=== PATIENT | female | born 1995 | race Two or more races ===

== ENCOUNTER 2019-06-04 10:02 | Inpatient (IN) | payer OTHER ==
[~2019-06-04] VITALS: Ht 160 cm; Wt 84.1 kg
[2019-06-04] MEDS ORDERED: LR 1,000 ML IV SCH (10:15)
[2019-06-04] MEDS ORDERED: LACTATED RINGER'S 1000 ML IV STA (10:15)
[2019-06-04 10:44] VITALS: BP 122/74
[2019-06-04 11:02] VITALS: BP 132/61
[2019-06-04 11:17] VITALS: BP 118/68
[2019-06-04 11:21] LABS: HEMATOCRIT 39.7 % (36.0-47.0); HEMOGLOBIN 12.9 g/dl (12.0-15.5); MEAN CORPUSCULAR HEMOGLOBIN 27.9 pg (27.0-33.0); MEAN CORPUSCULAR HGB CONC 32.5 g/dl (32.0-36.5); MEAN CORPUSCULAR VOLUME 85.9 fl (80.0-96.0); PLATELET COUNT, AUTOMATED 174 10^3/uL (150-450); RED BLOOD COUNT 4.62 10^6/uL (4.00-5.40)
[2019-06-04] MEDS ORDERED: ACETAMINOPHEN 500 MG TAB PO PRN (11:30)
[2019-06-04] MEDS ORDERED: DOCUSATE SODIUM 100 MG CAP PO PRN (11:30)
[2019-06-04] MEDS ORDERED: IBUPROFEN 800 MG TAB PO PRN (11:30)
[2019-06-04] MEDS ORDERED: IBUPROFEN 600 MG TAB PO PRN (11:30)
[2019-06-04] MEDS ORDERED: MEASLES,MUMPS,RUBELLA VACCINE INJ (MMR-II) (90707) SC SCH (11:30)
[2019-06-04] MEDS ORDERED: DIBUCAINE 1% OINTMENT 30GM TOP PRN (11:30)
[2019-06-04] MEDS ORDERED: RHOGAM 300 MCG (1500 IU) INJ (J2790) IM SCH (11:30)
[2019-06-04] MEDS ORDERED: ACETAMINOPHEN TAB 650MG DOSE (2X325MG) PO PRN (11:30)
[2019-06-04 11:33] VITALS: BP 140/86
[2019-06-04] MEDS ORDERED: OXYTOCIN INJ 10 UNITS/ML VIAL (J2590) IM ONE (11:45)
[2019-06-04] MEDS ORDERED: LIDOCAINE 1% MDV 20ML VIAL INFIL ONE (11:45)
--- NOTE | 2019-06-04 11:45 | HPEPDOC ---
Obstetrical History & Physical General Date of Admission Jun 04, 2019 at 10:11 History of Present Illness Sandra is a 24yo with SIUP at 37w4d by early u/s presenting with regular, painful ctx since 0400 this morning. In triage, her water broke with clear/bloody fluid and SCE 8/90/-1. Good movement. No f/c/n/v. Chief Complaint: Contractions, term Information Provided By: Patient Care Care: Good Care Dating Final EDC: Jun 21, 2019 Final EDC by: 1st trimester (US) Antepartum Course Diagnos(e)s overweight (BMI 28) Height (inches): 63 Pre- weight (lbs.): 162 Admission Weight (lbs.): 182 Change in Weight (lbs.): 20 Past Medical History Past Obstetrical History : Past Obstetrical History: Multigravida (2016 38wk 7lb3oz F uncomplicated) Complications: No [employer]ING [employer] History: No pertinent history Past Medical History Medical History BMI 28 Surgical History: Denies/None Family History Significant Family History: No pertinent family hx Social History Marital Status: Family situation: Spouse/partner home Psychosocial History: No pertinent psych hx * Smoker: non-smoker Alcohol: Denies Drugs: denies Imunizations Tdap status: current Influenza Status: current Allergies Coded Allergies: No Known Allergies (Unverified , 06/04/19) Physical Examination Physical Examination GENERAL: Alert and oriented times three. ABDOMEN: Gravid and non-tender to touch. FETUS: Is vertex (VTX) by sterile vaginal examination (SVE) EXTREMITIES: No edema Vital Signs/I&O Vital Signs Date Time Temp Pulse Resp B/P (MAP) Pulse Ox O2 Delivery O2 Flow Rate FiO2 06/04/19 11:02 94 132/61 (84) Laboratory Data 24H LABS Laboratory Tests 2 06/04/19 10:19: Serology Scanned Report Hepatitis B Testing 06/04/19 11:11: Nucleated Red Blood Cells % (auto) 0.0 CBC/BMP Laboratory Tests 06/04/19 11:11 Pertinent Laboratoy Data Blood Type: A+ RBC Antibody Screen: Negative HIV: Negative Hepatitis B: Negative Hepatitis C: Unknown Rapid Plasma Reagin: Nonreactive Rubella: Immune Varicella: Immune Chlamydia/Gonorrhea: Negative Group B Streptococcus: Negative Glucose Tolerance Test: 100 Anatomy Ultrasound Ultrasound Date: Feb 08, 2019 Placenta Location: Posterior Normal Anatomy: Yes Placenta Previa: No Steroid Therapy Steroid Therapy: No Vaginal Examination Dilation: 8 cm Effacement: 90% Station: -1, 0 Cervical Consistency: Soft Cervical Position: Anterior Presentation: Cephalic presentation Assessment Variability: Moderate Accelerations: Positive Decelerations: None Tocometer Contractions: Yes Frequency: regular, every 2-5 min. Duration: greater than 60 seconds Strength: palpated as strong Assessment/Plan Assessment Sandra is a 24yo with SIUP at 37w4d by early u/s in active labor with SCE /-1, ctx q2-3min. Reassuring FHRT. Vitals wnl, benign exam. Cephalic by SCE. GBS negative. PMhx/ course only significant for starting BMI 28. Plan Admit and orient. Director Clinical Operations and consent. Diet: clear liquids Group B Streptococcus (GBS) negative Labs per unit protocol (patient delivered before IV could be placed) Anticipate normal spontaneous delivery () MD Nikhil Serna Katrina D MD Jun 04, 2019 11:45
--- NOTE | 2019-06-04 12:08 | DNPDOC ---
[facility] Delivery Note Delivery Note DATE OF DELIVERY: 04 Jun 2019 PREDELIVERY DIAGNOSIS: 37w4d gestation and labor. POST DELIVERY DIAGNOSIS: Delivered. PROCEDURE: Spontaneous vaginal delivery APPLIANCE SERVICER: Dr. Julia Tejeda MD ANESTHESIA: 1% lidocaine for repair ESTIMATED BLOOD LOSS: 250 mL. FINDINGS: 6 pound 5 ounce (2850g) female , Score 9/9 DELIVERY SUMMARY: Sandra is a 24yo [id number] s/p uncomplicated at 1021 on 06/04/2019 after presenting in active labor at 37w4d. She was 8cm on presentation and had SROM in triage (clear/bloody). Within a few contractions, she was complete and pushing. Infant's head delivered OA, restituted TRANG. Right anterior shoulder delivered followed by posterior shoulder and corpus. Terminal meconium noted. Infant was vigorous with spontaneous cry, placed on maternal abdomen and cord was clamped x2 and cut by FOB after approximately 2 minutes. 's nose and mouth were suctioned with bulb suction. Apgars 9/9. With traction on the umbilical cord and uterine massage, placenta delivered spontaneously and intact with 3 vessel centrally inserted cord. More uterine massage was performed and fundus was then firm at u-2cm. 10u IM pitocin given (patient did not have IV since delivered so quickly after presenting). Inspection of perineum and vagina revealed small left labial laceration repaired in routine fashion (after injecting 1% lidocaine) with 3-0 vicryl with excellent reapproximation and total hemostasis noted. All counts correct x2. Mom and infant were doing well when I left the room. MD Nikhil Serna Katrina D MD Jun 04, 2019 12:08
[2019-06-04 14:30] VITALS: BP 117/61
[2019-06-04 18:00] VITALS: BP 118/61
[2019-06-05 06:11] VITALS: BP 126/64
[2019-06-05] MEDS: PRENATAL VITAMINS CHEWABLE TABLET PO SCH (09:00)
--- NOTE | 2019-06-05 10:44 | IPNPDOC ---
Progress Note Date of Service: Jun 05, 2019 Day#: 1 Progress Note PPD 1 SUBJECT: Sandra is a 24yo [id number] doing well on PPD 1 s/p uncomplicated on 06/04 at 1021 after presenting in active labor at 37w4d. She has been ambulating, voiding spontaneously without issue and tolerating regular diet. Breast feeding without issue. Reports lochia is like a heavy period. No f/c/n/v/CP/SOB. OBJECTIVE: VITAL SIGNS: Within normal limits, afebrile. Alert and oriented times three. Abdomen: Fundus firm at U-2. Soft, NTTP. Extremities: trace edema of BLE, no ASSESSMENT: Sandra is a 24yo [id number] doing well on PPD 1 s/p uncomplicated on 06/04 at 1021 after presenting in active labor at 37w4d. Vitals within normal limits, afebrile, hemodynamically stable with no evidence of infection. PLAN: 1. Routine care 2. Tylenol and Motrin for pain. 3. Encourage breast feeding and ambulation. 4. Undecided on contraception 5. Likely discharge home tomorrow if meeting all milestones Dr. Julia Tejeda MD VS, I&O, 24H, Fishbone Vital Signs/I&O Vital Signs Date Time Temp Pulse Resp B/P (MAP) Pulse Ox O2 Delivery O2 Flow Rate FiO2 06/05/19 06:11 98.9 80 18 126/64 (84) 99 Room Air I&O- Last 24 Hours up to 6 AM 06/05/19 06:00 Output Total 450 ml Balance -450 ml Laboratory Data 24H LABS Laboratory Tests 2 06/04/19 11:11: Nucleated Red Blood Cells % (auto) 0.0 CBC/BMP Laboratory Tests 06/04/19 11:11 Julia Tejeda MD Jun 05, 2019 10:44
[2019-06-05 18:00] VITALS: BP 121/66
[2019-06-06 06:05] VITALS: BP 102/58
--- NOTE | 2019-06-06 07:54 | IPNPDOC ---
Progress Note Date of Service: Jun 06, 2019 Day#: 2 Progress Note PPD 2 SUBJECT: Sandra is a 24yo [id number] doing well on PPD 2 s/p uncomplicated on 06/04 at 1021 after presenting in active labor at 37w4d. She has been ambulating, voiding spontaneously without issue and tolerating regular diet. Breast feeding without issue. Reports lochia is tapering. No f/c/n/v/CP/SOB. OBJECTIVE: VITAL SIGNS: Within normal limits, afebrile. Alert and oriented times three. Abdomen: Fundus firm at U-2. Soft, NTTP. Extremities: trace edema of BLE, no ASSESSMENT: Sandra is a 24yo [id number] doing well on PPD 2 s/p uncomplicated on 06/04 at 1021 after presenting in active labor at 37w4d. Vitals within normal limits, afebrile, hemodynamically stable with no evidence of infection. PLAN: 1. Discharge to home 2. Tylenol and Motrin for pain. 3. Encourage breast feeding and ambulation. 4. Undecided on contraception, will discuss at routine PP visit in 6 weeks (pt knows to call for appt) 5. Discussed return precautions Dr. Julia Tejeda MD VS, I&O, 24H, Fishbone Vital Signs/I&O Vital Signs Date Time Temp Pulse Resp B/P (MAP) Pulse Ox O2 Delivery O2 Flow Rate FiO2 06/06/19 06:05 98.3 67 18 102/58 (73) 97 Room Air Julia Tejeda MD Jun 06, 2019 07:54
[2019-06-06] MEDS ORDERED: IBUP80TA PO (07:55)
[2019-06-06] MEDS ORDERED: ACET-683 PO (07:55)
--- NOTE | 2019-06-06 07:58 | DS.PDOC ---
Discharge Summary General Date of Admission Jun 04, 2019 at 10:11 Date of Discharge Jun 06, 2019 Attending Physician: Julia Tejeda MD Discharge Summary PROCEDURES PERFORMED DURING STAY: spontaneous vaginal delivery ADMITTING DIAGNOSES: 1. Active labor at term DISCHARGE DIAGNOSES: 1. Active labor at term, delivered COMPLICATIONS/CHIEF COMPLAINT: Labor Check. HISTORY OF PRESENT ILLNESS/HOSPITAL COURSE: Sandra is a 24yo [id number] doing well on PPD 2 s/p uncomplicated on 06/04 at 1021 after presenting in active labor at 37w4d. She had a benign course. At time of discharge, vitals are within normal limits, afebrile, hemodynamically stable with no evidence of infection. DISCHARGE MEDICATIONS: Please see below. ALLERGIES: Please see below. PHYSICAL EXAMINATION ON DISCHARGE: VITAL SIGNS: Within normal limits, afebrile. Alert and oriented times three. Abdomen: Fundus firm at U-2. Soft, NTTP. Extremities: trace edema of BLE, no LABORATORY DATA: Please see below. ACTIVITY: vaginal rest 6 weeks, no heavy lifting DIET: regular DISPOSITION: home DISCHARGE PLAN/INSTRUCTIONS: 1. Discharge to home 2. Tylenol and Motrin for pain. 3. Encourage breast feeding and ambulation. 4. Undecided on contraception, will discuss at routine PP visit in 6 weeks (pt knows to call for appt) 5. Discussed return precautions DISCHARGE CONDITION: Stable TIME SPENT ON DISCHARGE: Greater than [address] Julia Tejeda MD Vital Signs/I&Os Vital Signs Date Time Temp Pulse Resp B/P (MAP) Pulse Ox O2 Delivery O2 Flow Rate FiO2 06/06/19 06:05 98.3 67 18 102/58 (73) 97 Room Air Discharge Medications Scheduled PRN Acetaminophen (Acetaminophen) 500 Mg Tablet, 1,000 MG PO Q6HP PRN for PAIN LEVEL 6-10 Ibuprofen (Ibuprofen) 800 Mg Tablet, 800 MG PO Q8HP PRN for PAIN LEVEL 6-10 Allergies Coded Allergies: No Known Allergies (Unverified , 06/04/19) Julia Tejeda MD Jun 06, 2019 07:58
[2019-06-06] MEDS: PRENATAL VITAMINS CHEWABLE TABLET PO SCH (08:22)
== END 2019-06-06 15:55 | disposition home or self-care (01) | DRG 807 ==
LOC: M LDO 10:02 → M LDI 10:11 → M OBS 14:23
PROVIDERS: ADMIT Obstetrics & Gynecology; ATTEND Obstetrics & Gynecology
PROC: 10E0XZZ Delivery of Products of Conception, External Approach (ICD-10-PCS; principal; 2019-06-04)
PROC: 0HQ9XZZ Repair Perineum Skin, External Approach (ICD-10-PCS; 2019-06-04)
DX: O70.0 First degree perineal laceration during delivery (principal); Z37.0 Single live birth; Z3A.37 37 weeks gestation of pregnancy